=== PATIENT | female | born 1960 | race Caucasian/White ===

== ENCOUNTER → 2017-07-04 | Outpatient (CLI) | payer OTHER ==
[~2017-07-04] MED LIST: ALBUTEROL; ALLEGRA-D 24 H1 EACH; CEFDINIR300 MG PO; DECADRON4 MG GT; DILTIAZEM 24HR180 MG PO; ELIQUIS PO; GLIPIZIDE5 MG PO; GLYBURIDE5 MG PO; HYCODAN; LEVALBUTEROL IH; METFORMIN HCL850 MG PO; MONTELUKAST SOD10 MG PO; PREDNISONE10 MG PO; PREDNISONE20 MG PO; QVAR7.3 GM IH; SYMBICORT; TRIAMTERENE-HCTZ1 EA PO; TUSSIONEX; XOPENEX HFA15 G1 IH; XYZAL5 MG PO; Z.0.AUGMENTIN 875-1 PO; Z.0.COUMADIN5 MG PO; Z.0.DALIRESP500 MCG PO
--- NOTE | 2017-07-04 11:41 | Diagnostic Imaging Report ---
PROCEDURE: X-RAY CHEST, TWO VIEWS COMPARISON: 03/23/2016. INDICATIONS: SOB, CARDIAC ABLASION ON RIGHT SIDE DIAPHRAGM PARALIZED FINDINGS: Right hemidiaphragmatic elevation with patchy opacity in the right lung base. Left hemithorax is clear. Right hilar fullness with lobulated opacity measuring 3.5 cm. Normal heart size. No overt pulmonary edema. Sternotomy wires unchanged. CONCLUSION: Right hemidiaphragmatic elevation with patchy right hilar and lower lobe opacity. Findings may reflect atelectasis or fibrotic changes; however, CT scan of the chest with contrast is suggested for further evaluation if not recently performed. Dictated by: Oliverio Araujo M.D. on 07/04/2017 at 11:42 Electronically approved by: Oliverio Araujo M.D. on 07/04/2017 at 11:42
--- NOTE | 2017-07-04 12:03 | Diagnostic Imaging Report ---
PROCEDURE:DIAPHRAGMATIC FLUOROSCOPY (SNIFF TEST) TECHNIQUE:Fluoroscopic images were obtained quite breathing and maximal inspiration. INDICATION:Suspected right hemidiaphragmatic paralysis COMPARISON:Chest radiograph same date Fluoroscopy time: 0.8 minutes Air Kerma: 38 mGy. FINDINGS: Left: Appropriate left hemidiaphragmatic excursion during maximal inspiration as documented by fluoroscopy. Right: Absent right diaphragmatic excursion during maximal inspiration compatible with hemidiaphragmatic paralysis. CONCLUSION: Right hemidiaphragmatic paralysis. Dictated by: Oliverio Araujo M.D. on 07/04/2017 at 12:05 Electronically approved by: Oliverio Araujo M.D. on 07/04/2017 at 12:05
== END ==
LOC: DX 10:47
PROVIDERS: ATTEND Internal Medicine Critical Care Medicine
DX: G83.89 Other specified paralytic syndromes (principal); J98.11 Atelectasis
CPT/HCPCS: 71046

== ENCOUNTER 2017-08-13 23:09 | Emergency (ER) | payer OTHER ==
[~2017-08-13] VITALS: Ht 172.7 cm; Wt 140.6 kg
--- OUTSIDE RECORDS SUMMARY | 2017-08-13 23:11 | XMS REPORT ---
Author Author [facility] Address Unknown Phone Unavailable Care Team Providers Care Commercial Singer Name Role Phone GARY BURDICK Unavailable Unavailable GARY BURDICK Unavailable Unavailable Problems This patient has no known problems. Allergies, Adverse Reactions, Alerts This patient has no known allergies or adverse reactions. Medications This patient has no known medications. Encounters Start Date/Time End Date/Time Encounter Type Admission Type Attending Clinicians Care Facility Care Department Encounter ID 2016-09-07 20:00:00 2016-09-07 23:59:00 Outpatient C GARY BURDICK [facility] [id number] Results Test Description Test Time Test Comments Text Results Atomic Results Result Comments CHEST 2 VIEWS [place] [address] Patient Name: RILEY CUNNINGHAM MR #: [id number] : 1960 Age/Sex: 57/F Req #: [id number] Adm Physician: Ordered by: GARY BURDICK MD Report #: [id number] Location: DX Room/Bed: Procedure: [id number] DX/CHEST 2 VIEWS Exam Date: 07/04/17 Exam Time: 1125 REPORT STATUS: Signed PROCEDURE: X-RAY CHEST, TWO VIEWS COMPARISON: 03/23/2016. INDICATIONS: SOB, CARDIAC ABLASION ON RIGHT SIDE DIAPHRAGM PARALIZED FINDINGS: Right hemidiaphragmatic elevation with patchy opacity in the right lung base. Left hemithorax is clear. Right hilar fullness with lobulated opacity measuring 3.5 cm. Normal heart size. No overt pulmonary edema. Sternotomy wires unchanged. CONCLUSION: Right hemidiaphragmatic elevation with patchy right hilar and lower lobe opacity. Findings may reflect atelectasis or fibrotic changes; however, CT scan of the chest with contrast is suggested for further evaluation if not recently performed. Dictated by: Raine Kwong M.D. on 07/04/2017 at 11:42 Electronically approved by: Raine Kwong M.D. on 07/04/2017 at 11:42 Dictated By: RAINE KWONG MD 1142 Transcribed By: KIAH on 07/04/17 1142 COPY TO: GARY BURDICK MD DIAPHRAGMATIC FLUOR-SNIFF TEST [place] [address] Patient Name: RILEY CUNNINGHAM MR #: [id number] : 1960 Age/Sex: 57/F Req #: [id number] Adm Physician: Ordered by: GARY BURDICK MD Report #: [id number] Location: DX Room/Bed: Procedure: [id number] DX/DIAPHRAGMATIC FLUOR-SNIFF TEST Exam Date: 07/04/17 Exam Time: 1125 REPORT STATUS: Signed PROCEDURE : DIAPHRAGMATIC FLUOROSCOPY (SNIFF TEST) TECHNIQUE: Fluoroscopic images were obtained quite breathing and maximal inspiration. INDICATION: Suspected right hemidiaphragmatic paralysis COMPARISON: Chest radiograph same date Fluoroscopy time: 0.8 minutes Air Kerma: 38 mGy. FINDINGS: Left: Appropriate left hemidiaphragmatic excursion during maximal inspiration as documented by fluoroscopy. Right: Absent right diaphragmatic excursion during maximal inspiration compatible with hemidiaphragmatic paralysis. CONCLUSION: Right hemidiaphragmatic paralysis. Dictated by: Raine Kwong M.D. on 07/04/2017 at 12:05 Electronically approved by: Raine Kwong M.D. on 07/04/2017 at 12:05 Dictated By: RAINE KWONG MD 1205 Transcribed By: KIAH on 07/04/17 1205 COPY TO : GARY BURDICK MD
[2017-08-13] MEDS ORDERED: METHYLPREDNISOLONE SOD SUCC 125 MG/2ML VIAL IV ONE (23:30)
[2017-08-14 00:04] LABS: BASOPHILS % 0.3 % (0.0-1.0); EOSINOPHILS # (AUTO) 0.1 (0.0-0.4); HEMATOCRIT 43.9 % (34.2-44.1); HEMOGLOBIN 14.6 g/dL (12.0-16.0); LYMPHOCYTES # (AUTO) 2.1 (1.0-3.2); LYMPHOCYTES % 35.7 % (18.0-39.1); MEAN CORPUSCULAR HEMOGLOBIN 29.1 pg (28-32); MEAN CORPUSCULAR HGB CONC 33.3 g/dL (31-35); MEAN CORPUSCULAR VOLUME 87.6 fL (81-99); MONOCYTES # (AUTO) 0.3 (0.2-0.8); MONOCYTES % 4.8 % (4.4-11.3); NEUTROPHILS # (AUTO) 3.4 (2.1-6.9); NEUTROPHILS % 57.9 % (38.7-80.0); PLATELET COUNT 224 x10e3/uL (140-360); RED BLOOD COUNT 5.01 x10e6/uL (3.6-5.1); RED CELL DISTRIBUTION WIDTH 13.3 % (11.7-14.4)
[2017-08-14] MEDS ORDERED: ALBUTEROL/IPRATROPIUM 3 ML NEB NEB ONE (00:15)
--- NOTE | 2017-08-14 00:16 | Diagnostic Imaging Report ---
EXAM: CHEST 2 VIEWS, PA and lateral INDICATION: Shortness of breath, cough COMPARISON: PA and lateral view of the chest July 04, 2017 FINDINGS: LINES/TUBES: None LUNGS: Persistent opacity in the right infrahilar location. PLEURA: No effusions or pneumothorax. HEART AND MEDIASTINUM: Persistent prominence of the right hilum. Stable appearance of the heart. BONES AND SOFT TISSUES: No acute findings. IMPRESSION: Persistent right hilar prominence and right infrahilar opacity. This could represent pneumonia or mass. A CT of the chest with IV contrast is recommended for further evaluation if not already performed at an outside facility. Signed by: Dr. Piedad Friedman M.D. on 08/14/2017 12:13 AM
[2017-08-14 00:24] LABS: ALANINE AMINOTRANSFERASE 22 IU/L (0-55); ALBUMIN 4.5 g/dL (3.5-5.0); ALBUMIN/GLOBULIN RATIO 1.3 (0.8-2.0); ALKALINE PHOSPHATASE 91 IU/L (40-150); ANION GAP 18.6 mmol/L (8-16); BLOOD UREA NITROGEN 26 mg/dL (7-26); BUN/CREATININE RATIO 20 (6-25); CALCIUM 10.3 mg/dL (8.4-10.2); CARBON DIOXIDE 27 mmol/L (22-29); CHLORIDE 96 mmol/L (98-107); CREATINE KINASE 179 IU/L (29-168); CREATININE, SERUM 1.28 mg/dL (0.57-1.11); EST GLOMERULAR FILTRATION RATE 43 ML/MIN (60-); GLUCOSE 132 mg/dL (74-118); POTASSIUM 3.6 mmol/L (3.5-5.1); SODIUM 138 mmol/L (136-145)
--- NOTE | 2017-08-14 01:26 | Diagnostic Imaging Report ---
EXAM: CT CHEST WO INDICATION: Abnormal chest x-ray COMPARISON: None TECHNIQUE: Multidetector CT scanning of the chest was performed. Coronal and sagittal multiplanar reformations were obtained. Routine protocol performed. IV Contrast: None CTDIvol has been reviewed. It is below the limits set by the Radiation Protocol Committee (RPC). FINDINGS: LUNGS AND AIRWAYS: The trachea and major bronchi are unremarkable. Consolidation in the medial aspect of the right lower lobe. PLEURA: No effusions or pneumothorax. HEART, MEDIASTINUM, VESSELS: The heart is within normal size limits. No abnormal pericardial effusion. No thoracic aortic aneurysm. No mediastinal mass or lymphadenopathy. UPPER ABDOMEN: No acute findings. MUSCULOSKELETAL: No acute findings. IMPRESSION: Right infrahilar consolidation consistent with pneumonia. A follow-up PA and lateral view the chest is recommended in 2 months to ensure resolution. Signed by: Dr. Piedad Friedman M.D. on 08/14/2017 1:22 AM
[2017-08-14] MEDS ORDERED: CEFTRIAXONE SOD 1 GM VIAL IV ONE (01:30)
[2017-08-14 01:55] VITALS: BP 152/64
== END 2017-08-14 02:00 | disposition home or self-care (01) ==
LOC: ER 23:09
DX: R06.00 Dyspnea, unspecified (principal); R05 Cough; J15.9 Unspecified bacterial pneumonia; I10 Essential (primary) hypertension; E11.9 Type 2 diabetes mellitus without complications; J45.909 Unspecified asthma, uncomplicated; I48.91 Unspecified atrial fibrillation; E66.9 Obesity, unspecified
CPT/HCPCS: 99284; J0696; J2930

== ENCOUNTER → 2018-07-21 | Outpatient (CLI) | payer BC ==
--- NOTE | 2018-07-21 15:24 | Diagnostic Imaging Report ---
EXAMINATION: CHEST 2 VIEWS INDICATION: Shortness of breath. COMPARISON: CT Chest 08/14/2017 and chest radiograph 08/13/2017. FINDINGS: TUBES and LINES: None. LUNGS: Low lung volumes. There are patchy opacities at the bilateral lung bases. Mild bilateral interstitial opacities. There is linear subsegmental atelectasis in the right mid lung. PLEURA: No pleural effusion or pneumothorax. HEART AND MEDIASTINUM: The cardiomediastinal silhouette is unremarkable. Unchanged elevation of the right hemidiaphragm. BONES AND SOFT TISSUES: No acute osseous abnormality. Status post median sternotomy. UPPER ABDOMEN: No free air under the diaphragm. IMPRESSION: Patchy opacities in the bilateral lung bases may represent pneumonia versus atelectasis in the appropriate clinical setting. Recommend follow-up chest radiograph in 6-8 weeks to assess for resolution. Low lung volumes with possible mild pulmonary interstitial edema. Signed by: Dr. David Murray MD on 07/21/2018 3:21 PM
== END ==
LOC: RAD 13:52
PROVIDERS: ATTEND Allergy & Immunology
DX: R06.02 Shortness of breath (principal)
CPT/HCPCS: 71046

== ENCOUNTER → 2018-08-08 | Outpatient (CLI) | payer BC | LOC: RAD 10:43 | PROVIDERS: ATTEND Internal Medicine Pulmonary Disease | DX: I48.0 Paroxysmal atrial fibrillation (principal); I50.9 Heart failure, unspecified; J45.20 Mild intermittent asthma, uncomplicated; J98.6 Disorders of diaphragm | CPT/HCPCS: 93306 ==